=== PATIENT | male | born 1960 | race Caucasian/White ===

== ENCOUNTER 2017-08-16 08:03 | Day surgery (SDC) | payer OTHER ==
[2017-08-16] VITALS (9 sets, daily range): BP systolic 128–142; BP diastolic 80–101; PULSE 68–80; TEMP 98
[~2017-08-16] VITALS: Ht 190.5 cm; Wt 121.1 kg
[2017-08-16] MEDS ORDERED: ASPIRIN E.C. 8181 MG PO (08:25)
[2017-08-16] MEDS ORDERED: TOPROL XL 25MG25 MG PO (08:26)
[2017-08-16] MEDS ORDERED: NITROSTAT0.4 MG/TAB SL (08:26)
[2017-08-16 09:27] LABS: HEMOGLOBIN 16.5 g/dl (13.5-18.0); MEAN CELL VOLUME 92 fl (80.0-100.0); MEAN CORPUSCULAR HEMOGLOBIN 34 pg (27.0-31.0); MEAN CORPUSCULAR HGB CONC 37 g/dl (33.0-37.0); MEAN PLATELET VOLUME 10.2 fl (7.4-10.4); PLATELET COUNT 182 K/mm3 (130-400); RED BLOOD COUNT 4.88 M/mm3 (4.20-5.60); REDCELL DISTRIBUTION WIDTH-CV 12.3 % (11.5-14.5)
[2017-08-16 09:30] LABS: INR 0.9 (0.8-3.0); PROTHROMBIN TIME 10.6 SECONDS (9.7-12.8)
[2017-08-16 09:35] LABS: CALCIUM 9.3 mg/dL (8.4-10.2); CREATININE, serum 0.85 mg/dL (0.66-1.25); POTASSIUM 3.9 mmol/L (3.4-5.0)
== END 2017-08-16 14:55 | disposition home or self-care (01) ==
LOC: COL.CAR 08:03
PROVIDERS: Internal Medicine Cardiovascular Disease
DX: I49.3 Ventricular premature depolarization (principal); R07.9 Chest pain, unspecified; R94.39 Abnormal result of other cardiovascular function study; I08.3 Combined rheumatic disorders of mitral, aortic and tricuspid valves; K21.9 Gastro-esophageal reflux disease without esophagitis; I10 Essential (primary) hypertension; F41.9 Anxiety disorder, unspecified
CPT/HCPCS: J2250; J3010; Q9967

== ENCOUNTER 2020-08-31 07:08 | Day surgery (SDC) | payer OTHER ==
[2020-08-31] VITALS (9 sets, daily range): BP systolic 121–143; BP diastolic 80–95; PULSE 67–77; TEMP 98.2
[~2020-08-31] VITALS: Ht 190.7 cm; Wt 110.0 kg
[~2020-08-31 07:08] MED LIST: ASPIRIN E.C. 8181 MG PO; NITROSTAT0.4 MG/TAB SL; TOPROL XL 25MG25 MG PO
[2020-08-31] MEDS ORDERED: ZESTRIL 5MG5 MG PO (08:07)
[2020-08-31] MEDS ORDERED: NORVASC 5MG5 MG/TAB PO (08:07)
[2020-08-31] MEDS ORDERED: TOPROL XL 50MG50 MG PO (08:08)
[2020-08-31 08:09] LABS: HEMATOCRIT 45.1 % (42.0-52.0); HEMOGLOBIN 15.6 g/dl (13.5-18.0); MEAN CELL VOLUME 93 fl (80.0-100.0); MEAN CORPUSCULAR HEMOGLOBIN 32 pg (27.0-31.0); MEAN CORPUSCULAR HGB CONC 35 g/dl (33.0-37.0); MEAN PLATELET VOLUME 10.3 fl (7.4-10.4); PLATELET COUNT 146 K/mm3 (130-400); RED BLOOD COUNT 4.87 M/mm3 (4.20-5.60); REDCELL DISTRIBUTION WIDTH-CV 12.1 % (11.5-14.5)
[2020-08-31 08:16] LABS: INR 0.9 (0.8-3.0)
[2020-08-31 08:19] LABS: PARTIAL THROMBOPLASTIN TIME 28.7 SECONDS (26.0-37.0)
[2020-08-31 08:22] LABS: CREATININE, serum 0.73 (0.66-1.25); POTASSIUM 3.9 mmol/L (3.4-5.0)
--- NOTE | 2020-08-31 09:28 | NUR ---
States "really nervous", was very tearful in EU prior to procedure. Ativan 1mg PO given prior to proceeding. Emotional support offered.
--- NOTE | 2020-08-31 10:05 | NUR ---
pt to eu 12 via bed from semiconductor lab technician, pt is awake, in room. pt rests with eyes closed with no c/o, call light in reach. VSS. radial band secure, no signs of bleeding, pt sips on water
--- NOTE | 2020-08-31 10:50 | NUR ---
pt con't rests in bed, no c/o
[2020-08-31] MEDS ORDERED: ALDACTONE 25MG25 M1 PO (11:09)
--- NOTE | 2020-08-31 12:00 | NUR ---
started releasing air from band, 2cc every 10 min. with no problems, bandaid on with coban support, pt sat on side of bed, was c/o warm room and became diaphoretic, reviewed discharge inst. with pt on next appointment, care of site, activity and new med that was ordered with verbal understanding.
--- NOTE | 2020-08-31 12:00 | NUR ---
pt sits up in bed, eats lunch
--- NOTE | 2020-08-31 12:30 | NUR ---
iv d'cd intact. pt up and dressed. walked to b/r, discharged via w/c to car
== END 2020-08-31 12:30 | disposition home or self-care (01) ==
LOC: COL.CAR 07:08
PROVIDERS: Internal Medicine Cardiovascular Disease
DX: I42.8 Other cardiomyopathies (principal); I47.1 Supraventricular tachycardia; I50.20 Unspecified systolic (congestive) heart failure; K21.9 Gastro-esophageal reflux disease without esophagitis; I11.0 Hypertensive heart disease with heart failure; I49.3 Ventricular premature depolarization; I34.0 Nonrheumatic mitral (valve) insufficiency; F10.10 Alcohol abuse, uncomplicated; F17.290 Nicotine dependence, other tobacco product, uncomplicated; F17.220 Nicotine dependence, chewing tobacco, uncomplicated; F41.9 Anxiety disorder, unspecified; Z90.89 Acquired absence of other organs; Z79.899 Other long term (current) drug therapy; Z20.822 Contact with and (suspected) exposure to COVID-19
CPT/HCPCS: J1644; J2250; J3010; Q9967

== ENCOUNTER 2021-12-20 09:19 | Inpatient (IN) | payer OTHER ==
[2021-12-20] VITALS (8 sets, daily range): BP systolic 114–154; BP diastolic 66–109; PULSE 12–94; TEMP 97.7–98.5
[~2021-12-20] VITALS: Ht 190.5 cm; Wt 104.0 kg
[~2021-12-20 09:19] MED LIST changes: +ALDACTONE 25MG25 M1 PO; +NORVASC 5MG5 MG/TAB PO; +TOPROL XL 50MG50 MG PO; +ZESTRIL 5MG5 MG PO
[2021-12-20 09:52] LABS: HEMATOCRIT 43.3 % (42.0-52.0); HEMOGLOBIN 15.1 g/dl (13.5-18.0); MEAN CELL VOLUME 95 fl (80.0-100.0); MEAN CORPUSCULAR HEMOGLOBIN 33 pg (27-31); MEAN CORPUSCULAR HGB CONC 35 g/dl (33.0-37.0); MEAN PLATELET VOLUME 10.8 fl (7.4-10.4); PLATELET COUNT 175 K/mm3 (130-400); RED BLOOD COUNT 4.58 M/mm3 (4.20-5.60); REDCELL DISTRIBUTION WIDTH-CV 12.3 % (11.5-14.5)
[2021-12-20 10:01] LABS: PROTHROMBIN TIME 11.3 SECONDS (9.7-12.8)
[2021-12-20 10:15] LABS: CALCIUM 9.2 mg/dL (8.4-10.2); CREATININE, serum 1.09 mg/dL (0.72-1.25); POTASSIUM 3.9 mmol/L (3.5-4.5)
[2021-12-20] MEDS ORDERED: ELIQUIS 5MG PO (10:35)
[2021-12-20] MEDS ORDERED: FOLIC ACID 11 MG/TA1 PO (10:37)
[2021-12-20] MEDS ORDERED: FARXIGA10 PO (10:37)
[2021-12-20] MEDS ORDERED: ZESTRIL 10MG10 MG PO (10:38)
[2021-12-20] MEDS ORDERED: LASIX 40MG TABL40 MG PO (10:38)
[2021-12-20] MEDS ORDERED: TOPROL XL 50MG50 MG PO (10:40)
[2021-12-20] MEDS ORDERED: ALDACTONE 25MG25 M1 PO (10:40)
[2021-12-20] MEDS ORDERED: NATURE'S BLEND100 M2 PO (10:41)
--- NOTE | 2021-12-20 11:07 | NUR ---
Ativan 1mg po per request of Cardiology prior to procedure.
--- NOTE | 2021-12-20 14:00 | NUR ---
PATIENT ASKED ALCOHOL USE QUESITON IN ADMISSION. PATIENT AT FIRST DENIED ALCOHOL USE, HOWEVER HIS SAID THATS NO ACCURATE. THEN THIS RN ASKED PATIENT HOW OFTEN HE DRINKS ALCOHOL, TO WHICH HE REPLIED "WELL ITS NOT A FREQUENT THING." THEN HIS STATED "THATS NOT TRUE." I ASKED THE PATIENT AGAIN HOW OFTEN HE DRINKS ALCOHOL, HE STATED EVERY NIGHT. WHEN ASKED HOW MUCH THE PATIENT REPLIED "2-3." AND HIS SAID "NO, THATS NOT TRUE, LAST NIGHT YOU HAD.. I DONT EVEN KNOW HOW MANY!" PATIENT STATED HE DRINKS BOTH BEER AND HARD LIQUOR OF AN UNKNOWN AMOUNT.
[2021-12-21 00:42] VITALS: BP 116/77; PULSE 66; TEMP 98.1
[2021-12-21 04:47] VITALS: BP 130/79; PULSE 68; TEMP 98.1
--- NOTE | 2021-12-21 06:10 | NUR ---
RECIEVED CALL FROM [email or web address] REPORTING A RUN OF V TACH (4 BEATS) AND FREQUENT MULTI-FOCAL PVC'S. REPORTED TO DR. VARGAS. NO NEW ORDERS AT THIS TIME.
[2021-12-21 06:28] LABS: BASO # 0.1 K/mm3 (0.0-0.2); BASO % 0.7 % (0.0-2.0); EOS # 0.4 K/mm3 (0.0-0.7); EOS % 5.7 % (0.0-4.0); GRAN # 5.2 K/mm3 (1.4-6.5); GRAN % 69.9 % (42.2-75.2); HEMATOCRIT 40.4 % (42.0-52.0); HEMOGLOBIN 14.2 g/dl (13.5-18.0); LYMPH # 1.1 K/mm3 (1.2-3.4); LYMPH % 15.4 % (20.0-51.0); MEAN CELL VOLUME 95 fl (80.0-100.0); MEAN CORPUSCULAR HEMOGLOBIN 33 pg (27-31); MEAN CORPUSCULAR HGB CONC 35 g/dl (33.0-37.0); MEAN PLATELET VOLUME 11.3 fl (7.4-10.4); MONO # 0.6 K/mm3 (0.1-0.6); PLATELET COUNT 159 K/mm3 (130-400); RED BLOOD COUNT 4.27 M/mm3 (4.20-5.60); REDCELL DISTRIBUTION WIDTH-CV 12.2 % (11.5-14.5)
[2021-12-21 06:42] LABS: ALBUMIN 3.3 gm/dL (3.4-4.8); BILIRUBIN,TOTAL 0.8 mg/dL (0.2-1.2); CALCIUM 8.6 mg/dL (8.4-10.2); CREATININE, serum 0.96 mg/dL (0.72-1.25); POTASSIUM 3.6 mmol/L (3.5-4.5); TOTAL PROTEIN 5.7 gm/dL (6.2-8.1)
--- NOTE | 2021-12-21 07:53 | NUR ---
PATIENT ALERT AND AWAKE, RESTING IN BED. SAYS HE WAS UNABLE TO SLEEP D/T CONSTANT WORRYING ABOUT THINGS AT HOME. CALL LIGHT WITHIN REACH. PATIETN AWARE HE IS NPO. WILL CALL CARDIOLOGY FOR CALRIFICATION.
[2021-12-21 08:00] VITALS: BP 120/75; PULSE 75; TEMP 98
--- NOTE | 2021-12-21 09:12 | NUR ---
XR TECH CALLED, COMING SOON TO DO PATIENT REPEAT CXR.
--- NOTE | 2021-12-21 09:48 | NUR ---
Initial visit; Patient looked as if he is doing well and thanked Reference Test Clerk for looking in on him and keeping him in Reference Test Clerk's prayers. Reference Test Clerk offered God's blessings.
--- NOTE | 2021-12-21 11:01 | NUR ---
PATIENT PICKED UP BY [employer]RI[employer] FOR CHEST TUBE PLACEMENT.
[2021-12-21 12:00] VITALS: BP 112/87; PULSE 71; TEMP 97.3
--- NOTE | 2021-12-21 15:31 | NUR ---
Chief Clinical Dietitian met with patient to discuss discharge planning. Patient lives with his , Emy in [place] and sees Dr. Young for primary care. Patient obtains medications from the pharmacy in [place] with no difficulties. Patient does not use any DME and is independent with ADLS. Patient stated he completed a DPOA-[facility] at [facility] but can't remember who he designated. Patient plans to return home at time of discharge. Discharge Plan: Home
[2021-12-21 16:00] VITALS: BP 132/84; PULSE 74; TEMP 98.1
--- NOTE | 2021-12-21 16:05 | NUR ---
PATIENT NOT TOLERATING POST OP VITALS BEING CONNECTED. VITALS CURRENTLY STABLE. PATIENT UNABLE TO QUIT MOVING ARM SAND LEGS, CAUSING BLOOD PRSSURE MACHINE TO CONTINUOUSLY RESTART. BLOOD PRESSURE IS CURRENTLY STABLE PATIENT TAKEN ORAL LIQUID WELL WITH NO ISSUES. MULTIPLE ATTEMPTS TO PROVIDE EDUCATION TO PATIENT ON IMPORTANCE OF ACCURATE VITALS UNSUCCESSFUL, PATIENT HAD BECOME AGITATED WITH FAMILY IN ROOM, THEY STEPPED OUT AT THIS TIME. BED ALARM ON. WILL CONT TO MONITOR.
[2021-12-21 20:39] VITALS: BP 116/75; PULSE 63; TEMP 97.8
[2021-12-22 00:57] VITALS: BP 117/71; PULSE 68; TEMP 98.2
--- NOTE | 2021-12-22 04:34 | NUR ---
PATIENT HAD 18 BEAT RUN OF VTACH BEFORE CONVERTING BACK TO NORMAL SINUS. NOTIFIFED SCENIC ARTIST CHEF FRENCH NO NEW ORDERS RECEIVED.
[2021-12-22 05:02] VITALS: BP 125/72; PULSE 56; TEMP 98.2
[2021-12-22 07:17] VITALS: BP 108/73; PULSE 76; TEMP 98.1
--- NOTE | 2021-12-22 09:04 | NUR ---
CHEST TUBE CLAMPED PER MD ORDER. PATIENT WITH NO COMPLAINTS AT THIS TIME
[2021-12-22 11:29] VITALS: BP 97/54; PULSE 76; TEMP 97.7
--- NOTE | 2021-12-22 14:08 | NUR ---
CHEST TUBE REMOVED LEE DR JENKINS AT BEDSIDE. PATIENT WITH NO COMPLAINTS AT THIS TIME. CHEST TUBE INCISION COVERED WITH PTEROLEUM GAUZE AND STERILE 4X4 GAUZE ADN TAPE. CALL [facility] WITH IN REACH.
[2021-12-22 15:29] VITALS: BP 88/61; PULSE 70; TEMP 98.2
[2021-12-22] MEDS ORDERED: CEPHALEXIN500 M1 PO (15:47)
[2021-12-22 17:19] VITALS: BP 97/61; PULSE 63
--- NOTE | 2021-12-22 18:14 | NUR ---
PATIENT ALERT AND AWAKE, NO MORE COMPLAINTS. BLOOD PRESSURE IMPROVED. DSICHARGE INSTRUCTIONS, EDUCATION AND INCISION SITE CARE REVIEWED MULTIPLE TIMES. IV DISCONTINUED, TELE REMOVED. PATIENT HAS GIVEN MULTIPLE DIFFERENT ANSWERS ON WHEN HIS CAN PICK HIM UP. CURENTLY IS STATING HE WILL CALL AND ASK HER FOR AN ETA. WILL CONT TO MONITOR.
--- NOTE | 2021-12-22 18:50 | NUR ---
PT DISCHARGE WAS COMPLETE UPON SHIFT CHANGE, JUST WAITING FOR HIS RIDE. PT ESCORTED OUT AT 1850.
--- NOTE | 2021-12-22 18:53 | NUR ---
REPORT GIVEN TO NIGHT RN, PATIENT READY FOR DISCHARGE, JUST AWAITING PICKUP BY .
== END 2021-12-22 18:50 | disposition home or self-care (01) | DRG 982 ==
LOC: COL.CAR 09:19 → MEDICAL 14:34 → COL.CAR 12-21 11:39 → MEDICAL 12-21 11:40
PROVIDERS: ADMIT Internal Medicine Cardiovascular Disease
PROC: 0JH608Z Insertion of Defibrillator Generator into Chest Subcutaneous Tissue and Fascia, Open Approach (ICD-10-PCS; principal; 2021-12-21)
PROC: 02H60KZ Insertion of Defibrillator Lead into Right Atrium, Open Approach (ICD-10-PCS; 2021-12-21)
PROC: 02HK3KZ Insertion of Defibrillator Lead into Right Ventricle, Percutaneous Approach (ICD-10-PCS; 2021-12-21)
PROC: 0W9B30Z Drainage of Left Pleural Cavity with Drainage Device, Percutaneous Approach (ICD-10-PCS; 2021-12-21)
DX: J95.811 Postprocedural pneumothorax (principal); I42.8 Other cardiomyopathies; I47.20 Ventricular tachycardia, unspecified; I50.22 Chronic systolic (congestive) heart failure; I49.3 Ventricular premature depolarization; E78.5 Hyperlipidemia, unspecified; I11.0 Hypertensive heart disease with heart failure
CPT/HCPCS: OP; C1769; C1777; C1882; C1892; C1894; C1898; J0690; J2250; J3010; J7030

== ENCOUNTER → 2023-03-19 | Outpatient (CLI) | payer OTHER ==
[~2023-03-19] MED LIST changes: +Albuterol 0.083% Neb Soln 2.5 MG/3 ML UD IH ONE; +CEPHALEXIN500 M1 PO; +ELIQUIS 5MG PO; +FARXIGA10 PO; +FOLIC ACID 11 MG/TA1 PO; +LASIX 40MG TABL40 MG PO; +NATURE'S BLEND100 M2 PO; +ZESTRIL 10MG10 MG PO
== END ==
LOC: COL.RAD 09:00
DX: J32.8 Other chronic sinusitis (principal)

== ENCOUNTER → 2023-03-20 | Outpatient (CLI) | payer OTHER ==
[~2023-03-20] MED LIST changes: +Methacholine Vial A (Clear Label Base-Cntrl) IH ONE; +Methacholine Vial B (Red Label) 0.0625 MG/ML 3 ML VIAL.NEB IH ONE; +Methacholine Vial C (Orange Label) 0.25 MG/ML 3 ML VIAL.NEB IH ONE
== END ==
LOC: COL.CARD 07:56
DX: R05.9 Cough, unspecified (principal)
CPT/HCPCS: J7674

== ENCOUNTER 2023-06-14 15:58 | Inpatient (IN) | payer OTHER ==
[~2023-06-14] VITALS: Ht 190.5 cm; Wt 93.4 kg
[2023-06-14] VITALS (24 sets, daily range): BP systolic 119–130; BP diastolic 78–90; PULSE 80; TEMP 97.8–98.2; O2SAT 91–99
[~2023-06-14 15:58] MED LIST changes: -Albuterol 0.083% Neb Soln 2.5 MG/3 ML UD IH ONE; -Methacholine Vial A (Clear Label Base-Cntrl) IH ONE; -Methacholine Vial B (Red Label) 0.0625 MG/ML 3 ML VIAL.NEB IH ONE; -Methacholine Vial C (Orange Label) 0.25 MG/ML 3 ML VIAL.NEB IH ONE; +Thiamine 100 MG TAB PO SCH
--- NOTE | 2023-06-14 18:25 | NUR ---
Arrived to the unit via EMS. On CPAP on arrival. Alert and oriented and in no distress. Able to self transfer from ER cot to ICU bed. Assessment completed and attached to monitor devices. Patient's belonging placed in the closet. Wallet, cell phone and keys with patient and he requested for them to stay in the unit. Hospitalist notified of arrival.
[2023-06-14] MEDS ORDERED: Albuterol/Ipratropium 3 MG-0.5 MG/3 ML Neb Soln IH PRN (18:45)
[2023-06-14] MEDS ORDERED: Acetaminophen 325 MG TAB PO PRN (18:45)
[2023-06-14 18:49] LABS: ARTERIAL BLD GAS O2 SATURATION 99.1 % (92-100); ARTERIAL BLD GAS TCO2 CT 24.1; ARTERIAL BLOOD GAS BASE EXCESS -0.4 (-2-2); ARTERIAL BLOOD GAS HCO3 23.1 meq/L (22-26); ARTERIAL BLOOD GAS PCO2 34.4 mmHg (35-45); ARTERIAL BLOOD GAS pH 7.44 (7.35-7.45)
[2023-06-14 18:50] LABS: ARTERIAL BLOOD GAS PO2 185.6 mmHg (80-100)
[2023-06-14] MEDS ORDERED: SINGULAIR 110 MG/TAB PO (18:55)
[2023-06-14] MEDS ORDERED: XOPENEX HF0.045 MG/A IH (18:56)
[2023-06-14] MEDS ORDERED: TESSALON P100 MG/CAP PO (18:56)
[2023-06-14] MEDS ORDERED: CELEXA10 MG PO (18:58)
[2023-06-14] MEDS ORDERED: COZAAR 25MG25 MG/TAB PO (18:58)
[2023-06-14] MEDS ORDERED: TOPROL XL100 MG PO (18:59)
[2023-06-14] MEDS ORDERED: ALBUTEROL0.83 MG/ML IH (18:59)
[2023-06-14] MEDS ORDERED: Budesonide Neb Susp 0.5 MG/2 ML AMP IH SCH (19:00)
[2023-06-14] MEDS ORDERED: Formoterol Neb Soln 20 MCG/2 ML UD IH SCH (19:00)
[2023-06-14] MEDS ORDERED: QVAR REDIHALE10.6 G1 IH (19:01)
[2023-06-14] MEDS ORDERED: VIAGRA50 M1 PO (19:04)
[2023-06-14] MEDS ORDERED: Benzonatate 100 MG CAP PO PRN (19:15)
[2023-06-14] MEDS ORDERED: LORazepam 2 MG/ML 1 ML VIAL IV PRN (19:30)
[2023-06-14] MEDS ORDERED: LORazepam 1 MG TAB PO PRN (19:30)
[2023-06-14] MEDS ORDERED: dexAMETHasone 10 MG/ML VIAL IV SCH (19:30)
[2023-06-14] MEDS ORDERED: Mag/Al Hydrox/Simeth Susp 30 ML CUP PO PRN (19:30)
[2023-06-14] MEDS ORDERED: LORazepam 2 MG/ML 1 ML VIAL IM PRN (19:30)
--- NOTE | 2023-06-14 19:30 | NUR ---
Received report from KIAN Kirkpatrick. Patient resting quietly in bed. Remains on BiPap at this time, tolerating well. , Emy, at bedside. Vitals within normal limits. Patient denies pain or discomfort. Hospitalist aware of patient's arrival to unit. Jenny at bedside.
[2023-06-14] MEDS ORDERED: Albuterol/Ipratropium 3 MG-0.5 MG/3 ML Neb Soln IH SCH (20:00)
[2023-06-14 20:03] LABS: INR 0.9 (0.8-3.0); PROTHROMBIN TIME 10.3 SECONDS (9.7-12.8)
[2023-06-14 20:05] LABS: PARTIAL THROMBOPLASTIN TIME 27.3 SECONDS (26.0-37.0)
[2023-06-14] MEDS ORDERED: Citalopram 20 MG TAB PO SCH (21:00)
[2023-06-14] MEDS ORDERED: Montelukast 10 MG TAB PO SCH (21:00)
[2023-06-14 21:47] LABS: TRICYCLIC ANTIDEPRESS URINE NEGATIVE (NEGATIVE)
[2023-06-15] VITALS (8 sets, daily range): BP systolic 103–137; BP diastolic 63–86; PULSE 66–83; TEMP 97.6–98; O2SAT 97
[2023-06-15 04:36] LABS: HEMATOCRIT 43.1 % (42.0-52.0); HEMOGLOBIN 15.3 g/dl (13.5-18.0); MEAN CELL VOLUME 95 fl (80.0-100.0); MEAN CORPUSCULAR HEMOGLOBIN 34 pg (27-31); MEAN CORPUSCULAR HGB CONC 36 g/dl (33.0-37.0); MEAN PLATELET VOLUME 10.4 fl (7.4-10.4); PLATELET COUNT 169 K/mm3 (130-400); RED BLOOD COUNT 4.56 M/mm3 (4.20-5.60); REDCELL DISTRIBUTION WIDTH-CV 12.4 % (11.5-14.5)
[2023-06-15 04:46] LABS: CALCIUM 9.3 mg/dL (8.4-10.2); CREATININE, serum 0.96 mg/dL (0.72-1.25); POTASSIUM 3.9 mEq/L (3.5-4.5)
[2023-06-15 05:21] LABS: LYMPHOCYTE 4 % (20.0-51.0); NEUTROPHILS 93 % (42.0-75.2); PLATELET ESTIMATE NORMAL (NORMAL)
[2023-06-15 05:23] LABS: STOMATOCYTE 1+
[2023-06-15] MEDS ORDERED: Furosemide 40 MG/4 ML VIAL IV SCH (07:00)
[2023-06-15] MEDS ORDERED: Multivitamin TAB PO SCH (08:00)
[2023-06-15] MEDS ORDERED: TOPROL XL100 MG PO (08:40)
[2023-06-15] MEDS ORDERED: VITAMIN D31000 IU PO (08:45)
[2023-06-15] MEDS ORDERED: ZYRTEC 10MG10 MG PO (08:46)
[2023-06-15] MEDS ORDERED: Dapagliflozin 10 MG **** subs to Empagliflozin 10 MG PO SCH (09:00)
[2023-06-15] MEDS ORDERED: Folic Acid 1 MG TAB PO SCH ×2 (09:00)
[2023-06-15] MEDS ORDERED: Empagliflozin 10 MG TAB PO SCH (09:00)
[2023-06-15] MEDS ORDERED: Thiamine 100 MG TAB PO SCH (09:00)
[2023-06-15] MEDS ORDERED: Losartan 25 MG TAB PO SCH (09:00)
--- NOTE | 2023-06-15 10:39 | NUR ---
RA SPO2 AT REST 98%. WITH AMBULATION SPO2 [id number]. AMBULATED AT A NICE PACE AND WAS ABLE TO CARRY ON A CONVERSATION. NO OXYGEN REQUIRED
[2023-06-15] MEDS ORDERED: TRELEGY ELLIPT1 EAC1 IH (11:34)
[2023-06-15] MEDS ORDERED: PREDNISONE20 MG PO (11:36)
--- NOTE | 2023-06-15 11:53 | NUR ---
Initial visit; Patient and his thanked drywall hanger helper for looking in on him and offering God's blessings and a "Get Well" message.
--- NOTE | 2023-06-15 12:23 | NUR ---
DISCHARGE INSTRUCTIONS REVIEWED BY PRIMARY RN. REVIEWED NEW MEDICATIONS. PT ASKED FOR REFILL OF TESSALONE PERLES. PRIMARY RN NOTIFED DOCTOR ELSA OF REQUEST. DOCTOR ELSA STATED HE WOULD PUT IN A SCRIPT. REVIEWED IMPORTANCE OF SCHEDULING FOLLOW UP APPOINTMENTS. PT AND VERBALIZE UNDERSTANDING. INT X2 DISCONTINUED.
[2023-06-15] MEDS ORDERED: TESSALON P100 MG/CAP PO (12:24)
--- NOTE | 2023-06-15 12:33 | NUR ---
PT AND ESCORTED OUT AT 1230.
== END 2023-06-15 12:30 | disposition home or self-care (01) | DRG 189 ==
LOC: ICU 15:58
PROVIDERS: Nurse Practitioner Family; ADMIT Internal Medicine
PROC: 5A09357 Assistance with Respiratory Ventilation, Less than 24 Consecutive Hours, Continuous Positive Airway Pressure (ICD-10-PCS; principal; 2023-06-14)
DX: J96.01 Acute respiratory failure with hypoxia (principal); I42.8 Other cardiomyopathies; E87.20 Acidosis, unspecified; J45.41 Moderate persistent asthma with (acute) exacerbation; F10.10 Alcohol abuse, uncomplicated; I11.0 Hypertensive heart disease with heart failure; I08.0 Rheumatic disorders of both mitral and aortic valves; G47.30 Sleep apnea, unspecified; I50.9 Heart failure, unspecified; Z95.810 Presence of automatic (implantable) cardiac defibrillator; Z86.718 Personal history of other venous thrombosis and embolism; Z86.711 Personal history of pulmonary embolism; Z90.49 Acquired absence of other specified parts of digestive tract; Z79.899 Other long term (current) drug therapy
CPT/HCPCS: J1100; J1650; J1940

== ENCOUNTER 2023-12-12 10:45 | Day surgery (SDC) | payer OTHER ==
[2023-12-12] VITALS (7 sets, daily range): BP systolic 103–143; BP diastolic 36–74; PULSE 42–75; TEMP 98.1
[~2023-12-12] VITALS: Ht 190.5 cm; Wt 96.7 kg
[~2023-12-12 10:45] MED LIST changes: +1/2 NS 1,000 ML IV SCH; +ALBUTEROL0.83 MG/ML IH; +CELEXA10 MG PO; +COZAAR 25MG25 MG/TAB PO; +PREDNISONE20 MG PO; +QVAR REDIHALE10.6 G1 IH; +SINGULAIR 110 MG/TAB PO; +TESSALON P100 MG/CAP PO; +TOPROL XL100 MG PO; +TRELEGY ELLIPT1 EAC1 IH; -Thiamine 100 MG TAB PO SCH; +VIAGRA50 M1 PO; +VITAMIN D31000 IU PO; +XOPENEX HF0.045 MG/A IH; +ZYRTEC 10MG10 MG PO
[2023-12-12 11:37] LABS: HEMATOCRIT 42.5 % (42.0-52.0); HEMOGLOBIN 14.8 g/dl (13.5-18.0); MEAN CELL VOLUME 93 fl (80.0-100.0); MEAN CORPUSCULAR HEMOGLOBIN 33 pg (27-31); MEAN CORPUSCULAR HGB CONC 35 g/dl (33.0-37.0); MEAN PLATELET VOLUME 10.3 fl (7.4-10.4); PLATELET COUNT 183 K/mm3 (130-400); RED BLOOD COUNT 4.55 M/mm3 (4.20-5.60); REDCELL DISTRIBUTION WIDTH-CV 12.7 % (11.5-14.5)
[2023-12-12 11:48] LABS: PROTHROMBIN TIME 10.5 SECONDS (9.7-12.8)
[2023-12-12] MEDS ORDERED: ENTRESTO 24 MG1 EACH PO (11:50)
[2023-12-12 11:51] LABS: PARTIAL THROMBOPLASTIN TIME 27.6 SECONDS (26.0-37.0)
[2023-12-12] MEDS ORDERED: COREG 3.123.125 MG/T PO (11:51)
[2023-12-12] MEDS ORDERED: AMOXICILLIN 50500 MG PO (11:51)
[2023-12-12 11:56] LABS: CALCIUM 9.4 mg/dL (8.4-10.2); CREATININE, serum 1.12 mg/dL (0.72-1.25); POTASSIUM 4.3 mEq/L (3.5-4.5)
[2023-12-12] MEDS ORDERED: Iohexol 350 - 100 ML VIAL INCOR ONE (14:55)
[2023-12-12] MEDS ORDERED: Midazolam 2 MG/2 ML VIAL IV SCH (14:57)
[2023-12-12] MEDS ORDERED: fentaNYL 50 MCG/ML 2 ML VIAL IV SCH (14:58)
[2023-12-12] MEDS ORDERED: Heparin 1,000 UNITS/ML 10 ML Multi-Dose VIAL IA SCH (15:00)
[2023-12-12] MEDS ORDERED: Heparin 1,000 UNITS/ML 10 ML Multi-Dose VIAL IV SCH (15:01)
[2023-12-12] MEDS ORDERED: Nitroglycerin 100 MCG/ML (Cath Lab) 10 ML VIAL IA SCH (15:02)
[2023-12-12] MEDS ORDERED: Verapamil 2.5 MG/ML 2 ML VIAL IA SCH (15:03)
--- NOTE | 2023-12-12 15:45 | NUR ---
Dennis was transferred back to express unit rm [address] Davila. He is awake and alert, PWD with reg and unlabored resps. TR band to rt wrist, cms intact distal. He is hooked up on tele and for post procedure vitals. BS report and handoff of care to Fouzia LANGSTON. Please see merge document for record of procedure.
--- NOTE | 2023-12-12 18:05 | NUR ---
PT TOLERATED RECOVERY PERIOD WELL. VS REMAINED WITHIN NORMAL LIMITS. PT FREE FROM ACUTE CONCERNS AND COMPLAINTS UPON DISCHARGE. PT ASSISTED TO ER LOBBY VIA WHEELCHAIR. RIGHT RADIAL SITE REMAINED FREE FROM SIGNS OF BLEEDING AND HEMATOMA. RIGHT RADIAL DRESSING REMAINED CLEAN DRY AND INTACT. PT VERBALIZED UNDERSTANDING OF DISCHARGE INSTRUCTIONS. IV DISCONTINUED UPON DISCHARGE.
== END 2023-12-12 18:08 | disposition home or self-care (01) ==
LOC: COL.CAR 10:45
PROVIDERS: Internal Medicine Cardiovascular Disease
DX: I42.8 Other cardiomyopathies (principal); Z86.718 Personal history of other venous thrombosis and embolism
CPT/HCPCS: J1644; J2250; J3010; Q9967